=== PATIENT | male | born 1995 | race Two or more races ===

== ENCOUNTER 2021-06-01 07:03 | Day surgery (SDC) | payer OTHER | END 2021-06-01 15:40 | disposition home or self-care (01) | LOC: CIR.AMB 07:03 | PROVIDERS: ATTEND Colon & Rectal Surgery | DX: K60.5 Anorectal fistula (principal); Z20.822 Contact with and (suspected) exposure to COVID-19 ==

== ENCOUNTER 2021-11-30 07:20 | Day surgery (SDC) | payer OTHER ==
[~2021-11-30 07:20] MED LIST: PEPCID AC20 MG PO
== END 2021-11-30 18:10 | disposition home or self-care (01) ==
LOC: CIR.AMB 07:20
PROVIDERS: ATTEND Colon & Rectal Surgery
DX: K60.5 Anorectal fistula (principal); E10.9 Type 1 diabetes mellitus without complications; Z20.822 Contact with and (suspected) exposure to COVID-19